=== PATIENT | male | born 1995 | race African-American/Black ===

== ENCOUNTER → 2018-10-03 | Outpatient (CLI) | payer OTHER ==
[~2018-10-03] MED LIST: CONRAY-43 43% 50ML VIAL (Q9960) As Ordered ONE; PROHANCE 279.3MG/ML 5ML VIAL (A9576) As Ordered ONE
--- NOTE | 2018-10-03 09:52 | REP ---
MR ARTHROGRAM LEFT HIP: There is mild marrow edema in the left pubis in a subchondral location. There is no abnormal bone marrow signal seen of the visualized osseous structures. There is no occult fracture of either hip. There is no evidence of avascular necrosis. I do not see evidence of a labral tear. No paralabral cyst is seen. Other surrounding soft tissue structures demonstrate no abnormal signal. There is a normal amount of joint fluid. Visualized intrapelvic structures appear unremarkable. There is no abnormal signal on the visualized tendons and muscles surrounding the left hip joint. IMPRESSION: Mild subchondral marrow edema in the left pubis could be due to some degree of arthritic change at the pubic symphysis or stress related changes. No other bone marrow abnormality of the visualized osseous structures. No evidence of a labral tear. No other significant finding. Electronically Signed by Erickson Schuster MD 10/03/2018 04:14 P
--- NOTE | 2018-10-03 16:20 | REP ---
LEFT HIP ARTHROGRAM The procedure was performed under the direction supervision of Dr. Schuster. The benefits and risks including but not limited to pain, infection, bleeding and anaphylaxis were explained to the patient and informed consent was obtained. The left femoral neck was localized using fluoroscopic guidance. Skin was prepped and draped in a sterile fashion. 1% lidocaine was used as a local anesthetic. Using fluoroscopic guidance a 22 gauge spinal needle was inserted and advanced to the femoral neck. 0.5 ml of Conray 43 was injected to verify placement. 11 ml of a solution containing 20 ml of sterile saline and 0.15 ml of ProHance was injected into the joint. The needle was removed and the patient was taken to MRI for postprocedural imaging. The patient tolerated the procedure well and there were no immediate complications. Less than 6 seconds of fluoro time was utilized for this procedure. Reviewed by GARLAND Blanco 10/03/2018 11:24 A Electronically Signed by Erickson Schuster MD 10/03/2018 04:11 P
== END ==
LOC: M RADPRO 06:34
PROVIDERS: ATTEND Physician Assistant
DX: R19.00 Intra-abdominal and pelvic swelling, mass and lump, unspecified site (principal); M25.551 Pain in right hip
CPT/HCPCS: 27093; 73723; 77002; A9576; Q9960

== ENCOUNTER → 2018-10-06 | Outpatient (CLI) | payer OTHER ==
--- NOTE | 2018-10-06 09:35 | REP ---
MR arthrogram right hip: History: Right hip pain. Bilateral anterior/inguinal hip pain. History of left pubic ramus nondisplaced stress fracture. Question labral tear. Comparison studies: No comparison studies available. Technique: Precontrast imaging includes coronal T1 and T2-weighted scans of both hips. Postcontrast small field of view high resolution axial, coronal and sagittal images are acquired in T1 and T2-weighted scans with fat saturation. MR arthrographic findings: Pre injection MR imaging shows cortical and medullary bone signal intensity is normal bilaterally in the joint effusion is seen on either side. Head neck junction morphology is normal. There is minimal T2 hyperintensity adjacent to the greater trochanters raising question of tendonitis. Postcontrast images show good filling and enhancement of the right hip articulation. Labral cartilages normal and symmetric. Ligamentum teres is intact. No loose body is seen. Exam is otherwise unremarkable. Impression: Mild T2 edema in the soft tissues adjacent the greater trochanter question tendonitis. Otherwise negative MR arthrography right hip. Electronically Signed by Rodney Nieves MD 10/06/2018 05:29 P
--- NOTE | 2018-10-06 17:34 | REP ---
Right hip arthrogram The procedure was performed under the direction supervision of Dr. Nieves. The benefits and risks including but not limited to pain, infection, bleeding and anaphylaxis were explained to the patient and informed consent was obtained. The right femoral neck was localized using fluoroscopic guidance. Skin was prepped and draped in a sterile fashion. 1% lidocaine was used as a local anesthetic. Using fluoroscopic guidance a 22 gauge spinal needle was inserted and advanced to the femoral neck. 0.5 ml of Conray 43 was injected to verify placement. 11 ml of a solution containing 20 ml of sterile saline and 0.15 ml of ProHance was injected into the joint. The needle was removed and the patient was taken to MRI for postprocedural imaging. The patient tolerated the procedure well and there were no immediate complications. Less than 6 seconds of fluoro time was utilized for this procedure. Reviewed by GARLAND Blanco 10/06/2018 04:13 P Electronically Signed by Rodney Nieves MD 10/06/2018 05:24 P
== END ==
LOC: M RADPRO 06:30 → EDUNIT# 07:00
PROVIDERS: ATTEND Physician Assistant
DX: M70.61 Trochanteric bursitis, right hip (principal)
CPT/HCPCS: 27093; 73723; 77002; A9576; Q9960